=== PATIENT | male | born 1945 | race Caucasian/White ===

== ENCOUNTER → 2018-01-20 | Outpatient (CLI) | payer MEDICARE, OTHER ==
[~2018-01-20] MED LIST: ASPI-1471 PO; BIMA2.5D5 OP; CHOL100058 PO; CHOL200021 PO; GARL10005 PO; LEVO25TA61 PO; LEVO50TA86 PO; NO ROUTINE MEDS; NYST15CR32 TP; OMEG-11 PO; PNEI IJ; PNEU0.5D3 IM; RESV50CA PO; SAW450CA3 PO; TAMS0.4C70 PO
[2018-01-20 15:33] LABS: PLATELET COUNT, AUTOMATED 160 K/uL (150-450)
== END ==
LOC: LAB 14:59
PROVIDERS: ATTEND Internal Medicine
DX: E03.9 Hypothyroidism, unspecified (principal); E78.5 Hyperlipidemia, unspecified; N40.0 Benign prostatic hyperplasia without lower urinary tract symptoms
CPT/HCPCS: 36415; 81001; 82040; 82247; 82310; 82374; 82435; 82565; 82947; 84075; 84132; 84155; 84295; 84450; 84460; 84520; 85025

== ENCOUNTER → 2018-01-27 | Outpatient (CLI) | payer MEDICARE, OTHER | LOC: LAB 16:13 | PROVIDERS: ATTEND Internal Medicine | DX: R31.1 Benign essential microscopic hematuria (principal); E03.9 Hypothyroidism, unspecified; E78.5 Hyperlipidemia, unspecified; R79.89 Other specified abnormal findings of blood chemistry | CPT/HCPCS: 36415; 81001; 82040; 82247; 82310; 82374; 82435; 82565; 82728; 82947; 83540; 83550; 84075; 84132; 84155; 84295; 84450; 84460; 84520 ==

== ENCOUNTER → 2018-01-29 | Outpatient (CLI) | payer MEDICARE, OTHER ==
--- NOTE | 2018-01-29 13:31 | RADIOLOGY IMAGING REPORT ---
FACILITY: [facility] PATIENT NAME: Mat Barron : 1945 MR: [id number] V: [id number] EXAM DATE: ORDERING PHYSICIAN: ASHLEY GALVIN TECHNOLOGIST: Location: [facility] Patient: Mat Barron : 1945 Visit/Account:[id number] Date of Sevice: 01/29/2018 ABDOMEN/PELVIS W/O CONTRAST HISTORY: Hematuria TECHNIQUE: Axial images acquired through the abdomen/pelvis. Coronal and sagittal reformatting also performed. No IV contrast administered. Dose Lowering Technique One of the following dose optimization techniques was utilized in the performance of this exam: Autom ated exposure control; adjustment of the mA and/or kV according to the patient's size; or use of an i terative reconstruction technique. Specific details can be referenced in the facility's radiology C T exam operational policy. COMPARISON: None. FINDINGS: Visualized lung bases: Mild linear stranding in the left lung base consistent with scarring versus a telectasis. Hepatobiliary: There is a vague 1.2 cm hypoattenuating nodule posterior aspect of the right lobe of the liver not ideally characterized on this noncontrast study. Spleen: Negative. Adrenals: Mild thickening the adrenal glands bilaterally Pancreas: Negative. Kidneys ureters and bladder: 8.1 cm lower pole right renal cyst . There is a 1 mm punctate calcification at the right UVJ. No evidence of right hydronephrosis or righ t hydroureter. There is very mild dilatation of the left ureter secondary to a 4 mm calculus at the left UVJ Genitalia: Prostate gland is mildly enlarged impinging upon the floor the bladder. Suggestion of a right hydrocele GI: There is mild diverticulosis left-sided colon although no CT evidence of acute diverticulitis Vessels/spaces/nodes: Negative. Bones/soft tissues: There are bilateral inguinal hernias containing fat,, right greater than left . The right inguinal hernia also contains the appendix.. There Is a small periumbilical hernia containing fat. There is also a small ventral hernia in the upper abdomen just to the right of midline containing o mentum. This hernia opening measures 1 cm in diameter. Additional findings: None pertinent. IMPRESSION: There is a 1 mm punctate calcification of the right UVJ although no evidence of right hydronephrosis or right hydroureter There is a 4 mm calculus at the left UVJ with mild left hydroureter Mild diverticulosis left-sided colon although no CT evidence of acute diverticulitis 1.2 cm hypoattenuating nodule posterior aspect right lobe of the liver not ideally characterized on t his noncontrast study. This could be further evaluated with MR if of clinical concern Bilateral inguinal hernias containing fat, the right inguinal hernia also contains the appendix. Small periumbilical hernia containing fat Small ventral hernia in the upper abdomen containing omentum Report Dictated By: Margaret Cook MD at 01/29/2018 1:09 PM Report E-Signed By: Margaret Cook MD at 01/29/2018 1:28 PM MACKENZIEN:[email or web address]
== END ==
LOC: CT 07:11
PROVIDERS: ATTEND Internal Medicine
DX: N20.0 Calculus of kidney (principal); R16.0 Hepatomegaly, not elsewhere classified; K57.90 Diverticulosis of intestine, part unspecified, without perforation or abscess without bleeding; K40.20 Bilateral inguinal hernia, without obstruction or gangrene, not specified as recurrent; K42.9 Umbilical hernia without obstruction or gangrene; K43.9 Ventral hernia without obstruction or gangrene
CPT/HCPCS: 74176

== ENCOUNTER → 2018-01-31 | Outpatient (CLI) | payer MEDICARE, OTHER ==
[~2018-01-31] MED LIST changes: +GADOBENATE 529MG/1ML 15ML VIAL IVP ONE; +NS 0.9% 20 ML SDV 40 ML ONE
--- NOTE | 2018-01-31 13:11 | RADIOLOGY IMAGING REPORT ---
FACILITY: [facility] PATIENT NAME: Mat Barron : 1945 MR: [id number] V: [id number] EXAM DATE: ORDERING PHYSICIAN: ASHLEY GALVIN TECHNOLOGIST: Location: [facility] Patient: Mat Barron : 1945 Visit/Account:[id number] Date of Sevice: 01/31/2018 ORBITS FOREIGN BODY 1 VIEW Additional Pertinent history: Metal screen for MRI One view obtained COMPARISON STUDIES: No relevant priors FINDINGS: Metallic foreign bodies: none Sinuses: negative IMPRESSION: No metallic foreign bodies in either orbit. Report Dictated By: Alexis Owens MD at 01/31/2018 1:07 PM Report E-Signed By: Alexis Owens MD at 01/31/2018 1:07 PM WSN:[id number]
--- NOTE | 2018-01-31 14:37 | RADIOLOGY IMAGING REPORT ---
FACILITY: [facility] [place] PATIENT NAME: Mat Barron : 1945 MR: [id number] V: [id number] EXAM DATE: ORDERING PHYSICIAN: ASHLEY GALVIN TECHNOLOGIST: Location: [facility] Patient: Mat Barron : 1945 Visit/Account:[id number] Date of Sevice: 01/31/2018 ABDOMEN W W/O CONTRAST HISTORY: liver nodule TECHNIQUE: Multiplanar multisequence magnetic resonance imaging of the abdomen without and with intr avenous contrast. CONTRAST: 15 mL Magnevist IV COMPARISON: CT 01/29/2018 FINDINGS: Visualized lung bases: Unremarkable. Liver: Within the posterior medial right hepatic dome and corresponding with findings on prior CT is a 1.4 cm T1 hypointense and T2 hyperintense lesion. On postcontrast images, this lesion enhances un iformly, isointense to blood pool and persisting throughout the postcontrast phase. The earliest pos tcontrast series obtained was already within the portal venous phase and although classic centripetal nodular enhancement was not demonstrated in this setting, there is no evidence of restricted diffusi on and it most likely represents flash fill of a benign cavernous hemangioma. Gallbladder: Negative. Bile ducts: Nondistended and grossly unremarkable. Spleen: Negative. Adrenals: Negative. Pancreas: Negative. Kidneys/: 8.5 cm unilocular, simple and benign appearing partially exophytic cyst lower pole right kidney. Several subcentimeter renal cortical cysts bilateral. Visualized GI: Grossly unremarkable and nonobstructed where visualized. Vessels/spaces/nodes: No bulky adenopathy. No ascites. Bones/soft tissues: Unremarkable. IMPRESSION: 1. 1.4 cm right hepatic lesion, corresponding with findings on prior CT and most consistent with a b enign cavernous hemangioma. 2. Several bilateral benign-appearing renal cortical cysts including an 8.5 cm cyst arising from low er pole right kidney. Report Dictated By: Jason Pozo MD at 01/31/2018 2:24 PM Report E-Signed By: Jason Pozo MD at 01/31/2018 2:32 PM WSN:[id number]
== END ==
LOC: MRI 07:09
PROVIDERS: ATTEND Internal Medicine
DX: K76.89 Other specified diseases of liver (principal); N28.1 Cyst of kidney, acquired
CPT/HCPCS: 70030; 74183; A9577; J7050

== ENCOUNTER → 2018-04-16 | Outpatient (CLI) | payer MEDICARE, OTHER ==
[~2018-04-16] MED LIST changes: -GADOBENATE 529MG/1ML 15ML VIAL IVP ONE; -NS 0.9% 20 ML SDV 40 ML ONE
--- NOTE | 2018-04-16 16:22 | RADIOLOGY IMAGING REPORT ---
FACILITY: [facility] PATIENT NAME: Mat Barron : 1945 MR: [id number] V: [id number] EXAM DATE: ORDERING PHYSICIAN: SCOTTY VYAS TECHNOLOGIST: Location: [facility] Patient: Mat Barron : 1945 Visit/Account:[id number] Date of Sevice: 04/16/2018 KIDNEYS EXAMINATION: Renal ultrasound. History: Bilateral kidneys stones and microhematuria COMPARISON STUDIES: CT abdomen and pelvis January 29, 2018 and MR the abdomen January 31, 2018 FINDINGS: Kidneys: Right kidney- 14.7 x 7.1 x 9.9 cm Left kidney- 10.9 x 4.9 x 5.5 cm Uniform and symmetric blood flow in each kidney by Doppler ultrasound. Hydronephrosis: none There is a 7.1 cm cyst lower pole of the right kidney. Other tiny cysts are identified in both kidne ys. Resistive index on the right is 0.64 and on the left 0.54 Bladder: Urinary bladder prevoid volume 284 mL. Postvoid residual was 111 mL. Bilateral ureteral je ts are present. Abdominal aorta and IVC: Aorta and IVC are patent by Doppler ultrasound. IMPRESSION: 111 mL post void bladder residual 7.1 cm cyst lower pole the right kidney with additional tiny cysts in both kidneys No demonstration of hydronephrosis Report Dictated By: Margaret Cook MD at 04/16/2018 3:54 PM Report E-Signed By: Margaret Cook MD at 04/16/2018 4:19 PM WSN:[email or web address]
== END ==
LOC: US 01:59
PROVIDERS: ATTEND Urology
DX: N28.1 Cyst of kidney, acquired (principal); R33.9 Retention of urine, unspecified
CPT/HCPCS: 76705